=== PATIENT | male | born 1960 | race American Indian/Alaskan Native ===

== ENCOUNTER 2021-10-02 03:08 | Emergency (ER) | payer SELFPAY ==
[2021-10-02 03:12] VITALS: BP 152/98
[2021-10-02 05:44] LABS: Basophils # (Auto) 0.1 K/mm3 (0.0-0.1); Basophils % (Auto) 2.1 % (0.0-1.8); Eosinophils # (Auto) 0.4 K/mm3 (0.0-0.4); Eosinophils % (Auto) 11.8 % (0.0-4.3); Hematocrit 30.4 % (35.5-45.6); Hemoglobin 9.7 gm/dl (11.8-15.2); Lymphocytes # (Auto) 1.5 K/mm3 (1.2-5.4); Lymphocytes % (Auto) 42.1 % (13.4-35.0); Mean Corpuscular HGB Conc 32 % (32-34); Mean Corpuscular Volume 94 fl (84-94); Monocytes # (Auto) 0.2 K/mm3 (0.0-0.8); Platelet Count 358 K/mm3 (140-440); Red Blood Count 3.24 M/mm3 (3.65-5.03); Red Cell Distribution Width 17.4 % (13.2-15.2)
--- NOTE | 2021-10-02 06:00 | Cat Scan Report ---
CT HEAD WITHOUT CONTRAST INDICATION / CLINICAL INFORMATION: Altered mental status. TECHNIQUE: CT of the head was performed without administration of intravenous contrast. All CT scans at this location are performed using CT dose reduction for ALARA by means of automated exposure contr ol. COMPARISON: None available. FINDINGS: CEREBRAL PARENCHYMA: No significant abnormality. No acute territorial infarct. HEMORRHAGE: None. EXTRA-AXIAL SPACES: Normal in size and morphology for the patient's age. VENTRICULAR SYSTEM: Normal in size and morphology for the patient's age. MIDLINE SHIFT / HERNIATION: None. CEREBELLUM / BRAINSTEM: No significant abnormality. ORBITS: Normal as visualized. SOFT TISSUES: No significant abnormality. SKULL: No significant abnormality. PARANASAL SINUSES / MASTOID AIR CELLS: Normal as visualized. ADDITIONAL FINDINGS: None. IMPRESSION: 1. No acute intracranial abnormality. Signer Name: Matt Novak II, MD Signed: 10/02/2021 5:56 AM Workstation Name: [id number]
[2021-10-02 06:11] LABS: Creatine Kinase MB 3.7 ng/mL (0.0-4.0)
[2021-10-02 06:13] LABS: Alanine Aminotransferase 6 units/L (7-56); Albumin 3.5 g/dL (3.9-5); Blood Urea Nitrogen 7 mg/dL (9-20); Calcium 8.1 mg/dL (8.4-10.2); Hemolysis Index 3
--- NOTE | 2021-10-02 06:13 | Emergency Department Report ---
ED General Adult HPI - General Chief complaint: Weakness Stated complaint: weakness Time Seen by Provider: 10/02/21 05:58 Source: patient, EMS Mode of arrival: Ambulatory Limitations: No Limitations - History of Present Illness Initial comments: Patient presents for pain all over. He states that he has been hurting all over for quite a long time. Patient states that he has seen doctors for this. He states that he needs a family doctor. Patient reports that he just hurts all over. He has been told that he has some sort of arthritis, but he cannot verify that. Regardless, he is here for pain. He has no chest pain. He states that he just is achy all over. He states that his arms are achy. His legs ache. He has backaches. He states that he just has generalized muscle pain. There is no fevers or chills. Has no vomiting or diarrhea. There is no history of recent travel or trauma. Has had no cough or congestion. - Related Data Home Medications Medication Instructions Recorded Confirmed Last Taken No Known Home Medications [No 07/23/16 07/23/16 Unknown Reported Home Medications] Allergies Allergy/AdvReac Type Severity Reaction Status Date / Time No Known Allergies Allergy Verified 10/02/21 03:12 ED Review of Systems ROS: Stated complaint: weakness Other details as noted in HPI Comment: All other systems reviewed and negative Constitutional: denies: fever Eyes: denies: eye pain ENT: denies: throat pain Respiratory: denies: cough Cardiovascular: denies: chest pain Endocrine: denies: unexplained weight loss Gastrointestinal: denies: vomiting, diarrhea Genitourinary: denies: dysuria Musculoskeletal: as per HPI, back pain, arthralgia, myalgia Skin: denies: rash Neurological: denies: headache Hematological/Lymphatic: denies: easy bruising ED Past Medical Hx - Past Medical History Previous Medical History?: No Hx Congestive Heart Failure: No Hx Diabetes: No Hx Sickle Cell Disease: No Hx Asthma: No Hx COPD: No Hx HIV: No Additional medical history: Alcohol abuse - Surgical History Past Surgical History?: No - Family History Family history: no significant - Social History Smoking Status: Current Every Day Smoker (We discussed tobacco cessation) - Medications Home Medications: Home Medications Medication Instructions Recorded Confirmed Last Taken Type No Known Home Medications [No 07/23/16 07/23/16 Unknown History Reported Home Medications] ED Physical Exam - General Limitations: No Limitations, Other (Pulse ox noted and normal) General appearance: alert, in no apparent distress - Head Head exam: Present: atraumatic, normocephalic, normal inspection - Eye Eye exam: Present: normal appearance, PERRL, EOMI. Absent: scleral icterus - ENT ENT exam: Present: normal orophraynx, normal external ear exam - Neck Neck exam: Present: normal inspection. Absent: meningismus - Respiratory Respiratory exam: Present: normal lung sounds bilaterally. Absent: respiratory distress - Cardiovascular Cardiovascular Exam: Present: regular rate, normal rhythm - GI/Abdominal GI/Abdominal exam: Present: soft. Absent: distended, tenderness - Extremities Exam Extremities exam: Present: normal capillary refill. Absent: pedal edema - Back Exam Back exam: Absent: CVA tenderness (R), CVA tenderness (L) - Neurological Exam Neurological exam: Present: alert, oriented X3, CN II-XII intact, reflexes normal. Absent: motor sensory deficit - Psychiatric Psychiatric exam: Present: normal affect, normal mood - Skin Skin exam: Present: warm, dry ED Course Vital Signs 10/02/21 03:10 Temperature 97.8 F Pulse Rate 78 Respiratory 18 Rate Blood Pressure 152/98 [Left] O2 Sat by Pulse 99 Oximetry - Reevaluation(s) Reevaluation #1: 10/02/21 06:11 Labs have been ordered by previous physician. I did cancel the urine drug screen and UA because the patient has no urinary symptoms. It is unlikely that this chronic condition will be related to an untreated urinary tract infection. Old records noted. Reevaluation #2: 10/02/21 06:59 Labs have been reviewed. Patient was discharged. ED Medical Decision Making - Lab Data Result diagrams: 10/02/21 05:23 10/02/21 05:23 Rhythm strip: Normal sinus rhythm without ectopy. Monitor observe 10 seconds. - EKG Data -: EKG Interpreted by [place] - EKG Data 10/02/21 07:00 0524-EKG shows normal sinus rhythm at 63. Intervals are normal including a QRS of 93 and a QT corrected of 449. Patient has no ST elevation to suggest STEMI. There is no ST depression suggestive of ischemia. This is a normal EKG. - Medical Decision Making Patient presents secondary to generalized weakness. He was found to be acutely intoxicated. The initial physician had seen the patient and placed orders. I did review these labs. Patient is awake and conversant at this time. He is cl inically sober. I do not believe he requires admission. There is no metabolic derangement. Patient will be treated symptomatically and referred for outpatient evaluation. He does have some evidence of anemia which can be managed and followed as an outpatient. His potassium is minimally low which can be addressed with dietary intake. There was no evidence of acute kidney injury. Critical Care Time: No Critical care attestation.: If time is entered above; I have spent that time in minutes in the direct care of this critically ill patient, excluding procedure time. ED Disposition Clinical Impression: Myalgia Alcohol intoxication Qualifiers: Complication of substance-induced condition: uncomplicated Qualified Code(s): F10.920 - Alcohol use, unspecified with intoxication, uncomplicated Disposition: 01 HOME / SELF CARE / HOMELESS Is pt being admited?: No Condition: Stable Instructions: Musculoskeletal Pain Additional Instructions: Drink plenty of water. Return for problems. Follow-up with your regular doctor or the on-call physician for recheck. Use Tylenol or Advil [id number] for pain. Referrals: GISELLA VALENTINO MD [Primary Care Provider] - 3-5 Days DEBORAH ROBERTSON MD [Staff Physician] - 3-5 Days
[2021-10-02 06:16] LABS: Free T4 (Free Thyroxine) 0.74 ng/dL (0.76-1.46)
[2021-10-02 06:24] LABS: BUN/Creatinine Ratio 12
[2021-10-02] MEDS ORDERED: SUCRALFATE 1 GM/10 ML ORAL LIQD PO ONE (07:08)
--- NOTE | 2021-10-02 11:56 | Electrocardiograph Report ---
[facility] Test Date: 2021-10-02 Test Time: 05:24:44 Pat Name: YOLANDA BREWSTER Department: Room: Gender: M Geology Technician: THANH : 1960 Requested By: DAVE LANDAVERDE Order Number: [id number] Reading MD: Guido Courtney Measurements Intervals [place] Rate: 63 P: 78 MA: 170 QRS: 77 QRSD: 93 T: 67 QT: 440 QTc: 449 Interpretive Statements Sinus rhythm No previous ECG available for comparison Electronically Signed On 10-02-2021 11:55:35 EST by Guido Courtney
== END 2021-10-02 07:26 | disposition home or self-care (01) ==
LOC: ED 03:08
DX: M79.10 Myalgia, unspecified site (principal); F10.129 Alcohol abuse with intoxication, unspecified; F17.200 Nicotine dependence, unspecified, uncomplicated
CPT/HCPCS: 36415; 70450; 80053; 80320; 82140; 82550; 82553; 84439; 84443; 84484; 85025; 93005; 93010; 99284; G0480